=== PATIENT | female | born 1985 | race Caucasian/White ===

== ENCOUNTER 2018-03-10 08:18 | Emergency (ER) | payer MEDICAID ==
[~2018-03-10] VITALS: Ht 170.2 cm; Wt 112.3 kg
[~2018-03-10 08:18] MED LIST: FLUT16SP2 NS; LEVO1TAB60 PO; PREN-139 PO
[2018-03-10 08:23] VITALS: BP 140/85
[2018-03-10] MEDS ORDERED: DOXY100C43 PO (08:34)
== END 2018-03-10 08:41 | disposition home or self-care (01) ==
LOC: ER 08:19
DX: K11.20 Sialoadenitis, unspecified (principal); G43.909 Migraine, unspecified, not intractable, without status migrainosus; Z90.49 Acquired absence of other specified parts of digestive tract; Z79.899 Other long term (current) drug therapy
CPT/HCPCS: 99283

== ENCOUNTER 2019-04-11 10:07 | Emergency (ER) | payer MEDICAID ==
[~2019-04-11] VITALS: Ht 170.2 cm; Wt 108.3 kg
[~2019-04-11 10:07] MED LIST changes: -PREN-139 PO; +PRENATAL ONE T1 EACH PO
[2019-04-11] MEDS ORDERED: AMOX-422 PO (10:57)
[2019-04-11 11:21] VITALS: BP 144/99
== END 2019-04-11 11:23 | disposition home or self-care (01) ==
LOC: ER 10:08
DX: K11.5 Sialolithiasis (principal); B99.8 Other infectious disease; G43.909 Migraine, unspecified, not intractable, without status migrainosus; Z90.49 Acquired absence of other specified parts of digestive tract; Z79.899 Other long term (current) drug therapy
CPT/HCPCS: 99283

== ENCOUNTER 2021-11-24 12:45 | Emergency (ER) | payer MEDICAID ==
[~2021-11-24] VITALS: Ht 170.2 cm; Wt 125.0 kg
[2021-11-24 12:54] VITALS: BP 179/90
[2021-11-24] MEDS ORDERED: AMOX-580 PO (13:22)
== END 2021-11-24 14:00 | disposition home or self-care (01) ==
LOC: ER 12:46
DX: K05.30 Chronic periodontitis, unspecified (principal); G43.909 Migraine, unspecified, not intractable, without status migrainosus; Z90.49 Acquired absence of other specified parts of digestive tract; Z79.899 Other long term (current) drug therapy
CPT/HCPCS: 99283

== ENCOUNTER 2022-01-28 11:57 | Emergency (ER) | payer MEDICAID ==
[~2022-01-28] VITALS: Ht 170.2 cm; Wt 113.6 kg
[2022-01-28 12:07] VITALS: BP 143/93
[2022-01-28] MEDS ORDERED: AMOX500C2 PO (16:32)
[2022-01-28] MEDS: amoxicillin 250mg capsule PO ONE (16:42)
== END 2022-01-28 16:44 | disposition home or self-care (01) ==
LOC: ER 11:58
DX: J32.0 Chronic maxillary sinusitis (principal); R05.9 Cough, unspecified; R09.89 Other specified symptoms and signs involving the circulatory and respiratory systems; R50.9 Fever, unspecified; G43.909 Migraine, unspecified, not intractable, without status migrainosus; Z90.49 Acquired absence of other specified parts of digestive tract; Z79.899 Other long term (current) drug therapy
CPT/HCPCS: 99283

== ENCOUNTER 2023-01-21 06:50 | Emergency (ER) | payer MEDICAID ==
[~2023-01-21] VITALS: Ht 170.2 cm; Wt 121.2 kg
[2023-01-21 06:54] VITALS: BP 159/93; PULSE 127; RESP 18; TEMP 98.6; O2SAT 98
[2023-01-21] MEDS ORDERED: PRED20TA PO (08:05)
[2023-01-21] MEDS ORDERED: AMOX-580 PO (08:05)
[2023-01-21] MEDS ORDERED: IBUP-1984 PO (08:05)
== END 2023-01-21 08:25 | disposition home or self-care (01) ==
LOC: ER 06:50
DX: J02.9 Acute pharyngitis, unspecified (principal); G43.909 Migraine, unspecified, not intractable, without status migrainosus; Z79.899 Other long term (current) drug therapy
CPT/HCPCS: 99283